=== PATIENT | female | born 1955 | race American Indian/Alaskan Native ===

== ENCOUNTER 2021-06-21 13:58 | Inpatient (IN) | payer BC, MEDICARE ==
--- NOTE | 2021-06-21 14:30 | Event Note ---
ED Screening Note Date of service: 06/21/21 Time: 14:29 ED Screening Note: Patient presents with complaints of shortness of breath x2 days History of diabetes and CHF Denies swelling Patient does admit to loss of taste and smell and chills She has received both her doses of the Covid vaccination, however she states she has been recently exposed to Covid at work Pulse ox noted to be 93% on room air while sitting and decreases to 87 to 88% with short ambulation and standing No swelling of the lower extremities noted on exam This initial assessment/diagnostic orders/clinical plan/treatment(s) is/are subject to change based on patients health status, clinical progression and re- assessment by fellow clinical providers in the ED. Further treatment and workup at subsequent clinical providers discretion. Patient/guardian urged not to elope from the ED as their condition may be serious if not clinically assessed and managed. Initial orders include: Labs Chest x-ray EKG Oxygen via nasal cannula
--- NOTE | 2021-06-21 15:11 | XRay Report ---
XR chest routine 2V INDICATION / CLINICAL INFORMATION: shortness of breath COMPARISON: None available. FINDINGS: SUPPORT DEVICES: None. HEART / MEDIASTINUM: No significant abnormality. LUNGS / PLEURA: Bibasilar peripheral opacities. Costophrenic sulci are sharp. No pneumothorax. ADDITIONAL FINDINGS: No significant additional findings. IMPRESSION: 1. Bilateral lower lung zone airspace disease concerning for pneumonia. Signer Name: Peyman Bhatia MD Signed: 06/21/2021 3:06 PM Workstation Name: [employer]
[2021-06-21 16:58] LABS: Basophils % (Auto) 0.3 % (0.0-1.8); Hematocrit 40.7 % (30.3-42.9); Hemoglobin 13.7 gm/dl (10.1-14.3); Lymphocytes # (Auto) 1.2 K/mm3 (1.2-5.4); Lymphocytes % (Auto) 25.4 % (13.4-35.0); Mean Corpuscular HGB Conc 34 % (30-34); Mean Corpuscular Volume 98 fl (79-97); Monocytes # (Auto) 0.4 K/mm3 (0.0-0.8); Monocytes % (Auto) 8.9 % (0.0-7.3); Platelet Count 264 K/mm3 (140-440); Red Blood Count 4.16 M/mm3 (3.65-5.03); Red Cell Distribution Width 13.2 % (13.2-15.2)
[2021-06-21 17:08] LABS: Alanine Aminotransferase 23 units/L (7-56); Albumin 3.8 g/dL (3.9-5); BUN/Creatinine Ratio 26; Blood Urea Nitrogen 23 mg/dL (7-17); Calcium 9.4 mg/dL (8.4-10.2); Hemolysis Index 4
[2021-06-21 17:10] LABS: C-Reactive Protein 6.2 mg/dL (0.00-1.30)
[2021-06-21] MEDS ORDERED: AZITHROMYCIN/NS 500 MG/250 ML 500 MG/250 ML BAG IV ONE (17:10)
[2021-06-21] MEDS ORDERED: cefTRIAXone/NS 2 GM/100 ML 2 GM/100 ML BAG IV ONE (17:10)
[2021-06-21] MEDS ORDERED: dexAMETHasone 4 MG/ML VIAL IV ONE (17:11)
--- NOTE | 2021-06-21 17:15 | Emergency Department Report ---
ED Shortness of Breath HPI - General Chief Complaint: Dyspnea/Respdistress Stated Complaint: SOB Time Seen by Provider: 06/21/21 14:27 Source: patient Mode of arrival: Wheelchair Limitations: No Limitations - History of Present Illness Initial Comments: 65-year female with a past medical history of noninsulin-dependent diabetes and hypertension presents to the hospital complaining of shortness of breath, cough, chills, and malaise x3 days. Patient reports a Covid exposure at work. Patient has been vaccinated with Phizer vaccine with last dose on 03/16/2021. Patient has been monitoring her O2 saturation at home and states intermittent as low as 86% while at rest and therefore she came to the hospital. She denies nausea, vomiting. No diarrhea reported. O2 sat 96% on 4 L NC in ed. -: Gradual, days(s) Consistency: intermittent Improves With: oxygen Worsens With: exertion Context: other (covid exposure) Associated Symptoms: cough - Related Data Allergies Allergy/AdvReac Type Severity Reaction Status Date / Time No Known Allergies Allergy Unverified 06/21/21 14:21 ED Review of Systems ROS: Stated complaint: SOB Other details as noted in HPI Comment: All other systems reviewed and negative ED Past Medical Hx - Past Medical History Previous Medical History?: Yes Hx Hypertension: Yes Hx Diabetes: Yes - Surgical History Past Surgical History?: Yes Hx Cholecystectomy: Yes Additional Surgical History: tonsil ED Physical Exam - General Limitations: No Limitations - Other Other exam information: General: No acute distress Head: Atraumatic Eyes: normal appearance ENT: Moist mucous membranes Neck: Normal appearance, no midline tenderness Chest: Clear to auscultation bilaterally, mild tachypnea, no accessory muscle use CV: Mild tachycardia regular rhythm Abdomen: Soft, normal bowel sounds, nontender, nondistended, no rebound or guarding Back: Normal inspection Extremity: Normal inspection, full range of motion, no calf tenderness or leg edema Neuro: Alert O x 3, no facial asymmetry, speech clear, no gross motor sensory deficit Psych: Appropriate behavior Skin: No rash ED Course Vital Signs 06/21/21 06/21/21 14:25 23:09 Temperature 98.7 F 99.1 F Pulse Rate 102 H 88 Respiratory 20 18 Rate Blood Pressure 131/73 Blood Pressure 132/87 [Right] O2 Sat by Pulse 96 92 Oximetry - Reevaluation(s) Reevaluation #1: 06/21/21 17:27 Patient remained saturation was 91% her ambulatory sat went down to 86%. Satting 98% on 3 L ED Medical Decision Making - Lab Data Result diagrams: 06/21/21 16:33 06/21/21 16:33 Lab Results 06/21/21 06/21/21 06/21/21 Range/Units 16:33 16:33 16:33 WBC 4.9 (4.5-11.0) K/mm3 RBC 4.16 (3.65-5.03) M/mm3 Hgb 13.7 (10.1-14.3) gm/dl Hct 40.7 (30.3-42.9) % MCV 98 H (79-97) fl MCH 33 H (28-32) pg MCHC 34 (30-34) % RDW 13.2 (13.2-15.2) % Plt Count 264 (140-440) K/mm3 Lymph % (Auto) 25.4 (13.4-35.0) % [place] % (Auto) 8.9 H (0.0-7.3) % Eos % (Auto) 0.0 (0.0-4.3) % Baso % (Auto) 0.3 (0.0-1.8) % Lymph # (Auto) 1.2 (1.2-5.4) K/mm3 [place] # (Auto) 0.4 (0.0-0.8) K/mm3 Eos # (Auto) 0.0 (0.0-0.4) K/mm3 Baso # (Auto) 0.0 (0.0-0.1) K/mm3 Seg Neutrophils % 65.4 (40.0-70.0) % Seg Neutrophils # 3.2 (1.8-7.7) K/mm3 D-Dimer 421.41 H (0-234) ng/mlDDU Sodium 138 (137-145) mmol/L Potassium 4.6 (3.6-5.0) mmol/L Chloride 100.6 (98-107) mmol/L Carbon Dioxide 25 (22-30) mmol/L Anion Gap 17 mmol/L BUN 23 H (7-17) mg/dL Creatinine 0.9 (0.6-1.2) mg/dL Estimated GFR > 60 ml/min BUN/Creatinine Ratio 26 % Glucose 107 H (65-100) mg/dL Calcium 9.4 (8.4-10.2) mg/dL Ferritin (10.0-200.0) ng/mL Total Bilirubin 0.30 (0.1-1.2) mg/dL AST 50 H (5-40) units/L ALT 23 (7-56) units/L Alkaline Phosphatase 111 (35-129) units/L Lactate Dehydrogenase (91-180) units/L Troponin T < 0.010 (0.00-0.029) ng/mL C-Reactive Protein (0.00-1.30) mg/dL NT-Pro-B Natriuret Pep 193.1 (0-900) pg/mL Total Protein 6.9 (6.3-8.2) g/dL Albumin 3.8 L (3.9-5) g/dL Albumin/Globulin Ratio 1.2 % 06/21/21 06/21/21 Range/Units 16:33 16:33 WBC (4.5-11.0) K/mm3 RBC (3.65-5.03) M/mm3 Hgb (10.1-14.3) gm/dl Hct (30.3-42.9) % MCV (79-97) fl MCH (28-32) pg MCHC (30-34) % RDW (13.2-15.2) % Plt Count (140-440) K/mm3 Lymph % (Auto) (13.4-35.0) % [place] % (Auto) (0.0-7.3) % Eos % (Auto) (0.0-4.3) % Baso % (Auto) (0.0-1.8) % Lymph # (Auto) (1.2-5.4) K/mm3 [place] # (Auto) (0.0-0.8) K/mm3 Eos # (Auto) (0.0-0.4) K/mm3 Baso # (Auto) (0.0-0.1) K/mm3 Seg Neutrophils % (40.0-70.0) % Seg Neutrophils # (1.8-7.7) K/mm3 D-Dimer (0-234) ng/mlDDU Sodium (137-145) mmol/L Potassium (3.6-5.0) mmol/L Chloride (98-107) mmol/L Carbon Dioxide (22-30) mmol/L Anion Gap mmol/L BUN (7-17) mg/dL Creatinine (0.6-1.2) mg/dL Estimated GFR ml/min BUN/Creatinine Ratio % Glucose 108 H (65-100) mg/dL Calcium (8.4-10.2) mg/dL Ferritin 243.8 H (10.0-200.0) ng/mL Total Bilirubin (0.1-1.2) mg/dL AST (5-40) units/L ALT (7-56) units/L Alkaline Phosphatase (35-129) units/L Lactate Dehydrogenase 347 H (91-180) units/L Troponin T (0.00-0.029) ng/mL C-Reactive Protein 6.20 H (0.00-1.30) mg/dL NT-Pro-B Natriuret Pep (0-900) pg/mL Total Protein (6.3-8.2) g/dL Albumin (3.9-5) g/dL Albumin/Globulin Ratio % - Radiology Data Radiology results: report reviewed XR chest routine 2V INDICATION / CLINICAL INFORMATION: shortness of breath COMPARISON: None available. FINDINGS: SUPPORT DEVICES: None. HEART / MEDIASTINUM: No significant abnormality. LUNGS / PLEURA: Bibasilar peripheral opacities. Costophrenic sulci are sharp. No pneumothorax. ADDITIONAL FINDINGS: No significant additional findings. IMPRESSION: 1. Bilateral lower lung zone airspace disease concerning for pneumonia. - Medical Decision Making 65-year-old female with likely Covid pneumonia (despite receiving vaccine) with bilateral infiltrates, hypoxia, dyspnea exertion, and chills requiring admission for treatment. Patient treated with antibiotics for community-acquired pneumonia as well as steroids. PCR Covid ordered. Hospitalist to admit. Supplemental oxygenation provided Critical Care Time: No Critical care attestation.: If time is entered above; I have spent that time in minutes in the direct care of this critically ill patient, excluding procedure time. ED Disposition Clinical Impression: Suspected COVID-19 virus infection, Bilateral pneumonia, Hypoxia, Diabetes HTN (hypertension) Qualifiers: Hypertension type: primary hypertension Qualified Code(s): I10 - Essential (p rimary) hypertension Disposition: ADMITTED INPATIENT Is pt being admited?: Yes Condition: Stable Time of Disposition: :17 (Dr Campbell/hosp)
[2021-06-21] MEDS ORDERED: oxyCODONE /ACETAMINOPHEN 5-325MG TAB PO PRN (17:18)
[2021-06-21] MEDS ORDERED: ALBUTEROL 2.5 MG/3 ML NEBU IH PRN (17:18)
[2021-06-21] MEDS ORDERED: ALPRAZolam 0.25 MG TAB PO PRN (17:18)
[2021-06-21] MEDS ORDERED: ACETAMINOPHEN 325 MG TAB PO PRN (17:18)
[2021-06-21] MEDS ORDERED: ONDANSETRON 4 MG/2 ML INJ IV PRN (17:18)
[2021-06-21] MEDS ORDERED: HYDROmorphone 1 MG/1 ML INJ IV PRN (17:18)
--- NOTE | 2021-06-21 17:25 | History and Physical Report ---
History of Present Illness Chief complaint: I feel sick History of present illness: 65 YO Female with HTN, DM presents to ED for evaluation. Patient reports "I feel sick". Patient states that she has experienced shortness of breath of breath, subjective fever, chills, malaise, loss of sense of smell, loss of sense of taste, body aches over the past 3 days with persistent and worsening symptoms over the same timeframe. Patient knowledges known exposure to coronavirus while at work. Patient transported to [facility] for further care and evaluation of the aforementioned symptoms. The patient was seen and evaluated in the emergency department. All lab and imaging studies reviewed. The patient was found to have a pulse oximetry of 86% with exertion with history is consistent with acute hypoxemic respiratory failure. Chest x-ray revealed bilateral pneumonia. Patient admitted to medical floor and initiated on pneumonia protocol as well as coronavirus protocol. Patient knowledges fever but denies chills, chest pain, palpitation, skin rash, recent ill contacts. Patient states that she is fully vaccinated with the Pfizer vaccine. No prior admission for review. No medication listed at time of admission for reconciliation. Advanced care planning conducted in ED. Past History Past Medical History: diabetes, hypertension, other (See HPI) Past Surgical History: cholecystectomy, tonsillectomy Social history: single. denies: smoking, alcohol abuse Family history: diabetes, hypertension Medications and Allergies Allergies Allergy/AdvReac Type Severity Reaction Status Date / Time No Known Allergies Allergy Unverified 06/21/21 14:21 Active Meds: Active Medications Acetaminophen (Acetaminophen 325 Mg Tab) 650 mg PO Q4H PRN PRN Reason: Pain MILD(1-3)/Fever >100.5/MARIE Albuterol (Albuterol 2.5 Mg/3 Ml Nebu) 2.5 mg IH Q4HRT PRN PRN Reason: Shortness Of Breath Alprazolam (Alprazolam 0.25 Mg Tab) 0.125 mg PO Q8H PRN PRN Reason: Anxiety Ascorbic Acid (Ascorbic Acid 500 Mg Tab) 500 mg PO BID [facility] Cholecalciferol (Cholecalciferol (Vit D3) 1000 Unit (25 Mcg) Tab) 1,000 unit PO QDAY [facility] Heparin Sodium (Porcine) (Heparin 5,000 Unit/1 Ml Vial) 5,000 unit SUB-Q Q12HR [facility] Hydromorphone HCl (Hydromorphone 1 Mg/1 Ml Inj) 0.5 mg IV Q12H PRN PRN Reason: Pain , Severe (7-10) Ceftriaxone Sodium (Rocephin/Ns 2 Gm/100 Ml) 2 gm in 100 mls @ 200 mls/hr IV ONCE ONE; Protocol Stop: 06/21/21 17:39 Azithromycin (Zithromax/Ns) 500 mg in 250 mls @ 250 mls/hr IV ONCE ONE; Protocol Stop: 06/21/21 18:09 Ceftriaxone Sodium (Rocephin/Ns 2 Gm/100 Ml) 2 gm in 100 mls @ 200 mls/hr IV Q24H [facility]; Protocol Azithromycin (Zithromax/Ns) 500 mg in 250 mls @ 250 mls/hr IV Q24H [facility]; Protocol Methylprednisolone Sodium Succinate (Methylprednisolone Sod Succinate 40 Mg/1 Ml Inj) 40 mg IV Q8HR [facility] Ondansetron HCl (Ondansetron 4 Mg/2 Ml Inj) 4 mg IV Q8H PRN PRN Reason: Nausea And Vomiting Oxycodone/Acetaminophen (Oxycodone /Acetaminophen 5-325mg Tab) 1 tab PO Q12H PRN PRN Reason: Pain, Moderate (4-6) Sodium Chloride (Sodium Chloride 0.9% 10 Ml Flush Syringe) 10 ml IV BID [facility]EUS Sodium Chloride (Sodium Chloride 0.9% 10 Ml Flush Syringe) 10 ml IV PRN PRN PRN Reason: LINE FLUSH Review of Systems Constitutional: fever, fatigue, weakness, malaise, lethargy Ears, nose, mouth and throat: other (Loss of sense of smell, loss of sense of taste), no deferred, no ear pain, no ear discharge, no tinnitis, no decreased hearing Breasts: no change in shape Cardiovascular: shortness of breath, no chest pain, no orthopnea, no rapid/irregular heart beat Respiratory: cough, shortness of breath, no excessive sputum, no hemoptysis, no dyspnea on exertion Gastrointestinal: no abdominal pain, no vomiting, no diarrhea Genitourinary Female: no pelvic pain, no flank pain, no dysuria, no urinary frequency, no urgency Rectal: no pain, no incontinence, no bleeding Musculoskeletal: no neck stiffness, no neck pain, no shooting arm pain Integumentary: no rash, no pruritis, no redness, no sores, no wounds Neurological: no head injury, no transient paralysis, no paralysis, no weakness, no parathesias, no numbness Psychiatric: no change in sleep habits, no sleep disturbances, no insomnia, no hypersomnia, no change in libido Endocrine: no cold intolerance, no heat intolerance, no excessive thirst, no polyuria, no flushing Hematologic/Lymphatic: no easy bruising, no easy bleeding, no lymphedema Allergic/Immunologic: no urticaria, no allergic rhinitis, no persistent infections, no angioedema Exam - Constitutional Vitals: Temp Pulse Resp BP Pulse Ox 98.7 F 102 H 20 131/73 96 06/21/21 14:25 06/21/21 14:25 06/21/21 14:25 06/21/21 14:25 06/21/21 14:25 General appearance: Present: mild distress - EENT Eyes: Present: PERRL ENT: hearing intact, clear oral mucosa - Neck Neck: Present: supple, normal ROM - Respiratory Respiratory effort: labored, accessory muscle use Respiratory: bilateral: diminished, rhonchi - Cardiovascular Heart Sounds: Present: S1 & S2. Absent: rub, click - Extremities Extremities: pulses symmetrical, No edema Peripheral Pulses: within normal limits - Abdominal General gastrointestinal: Present: soft, non-tender, non-distended, normal bowel sounds Female genitourinary: Present: normal - Integumentary Integumentary: Present: clear, warm, dry - Musculoskeletal Musculoskeletal: generalized weakness - Psychiatric Psychiatric: appropriate mood/affect, intact judgment & insight - Neurologic Neurologic: CNII-XII intact, moves all extremities HEART Score - HEART Score Troponin: Troponin T < 0.010 ng/mL (0.00-0.029) 06/21/21 16:33 Results - Labs CBC & Chem 7: 06/21/21 16:33 06/21/21 16:33 Labs: Abnormal lab results 06/21/21 06/21/21 06/21/21 Range/Units 16:33 16:33 16:33 MCV 98 H (79-97) fl MCH 33 H (28-32) pg [place] % (Auto) 8.9 H (0.0-7.3) % D-Dimer 421.41 H (0-234) ng/mlDDU BUN 23 H (7-17) mg/dL Glucose 107 H (65-100) mg/dL AST 50 H (5-40) units/L Lactate Dehydrogenase (91-180) units/L C-Reactive Protein (0.00-1.30) mg/dL Albumin 3.8 L (3.9-5) g/dL 06/21/21 Range/Units 16:33 MCV (79-97) fl MCH (28-32) pg [place] % (Auto) (0.0-7.3) % D-Dimer (0-234) ng/mlDDU BUN (7-17) mg/dL Glucose 108 H (65-100) mg/dL AST (5-40) units/L Lactate Dehydrogenase 347 H (91-180) units/L C-Reactive Protein 6.20 H (0.00-1.30) mg/dL Albumin (3.9-5) g/dL Assessment and Plan - Patient Problems (1) Acute hypoxemic respiratory failure Current Visit: Yes Status: Acute Plan to address problem: Supplemental oxygen, pulse oximetry, chest x-ray, nebulizer therapy, prone positioning while in bed, will consider high flow supplemental oxygen if patient is unable to maintain pulse oximetry on supplemental oxygen via nasal cannula. (2) Bilateral pneumonia Current Visit: Yes Status: Acute Plan to address problem: Pneumonia protocol: Chest x-ray, CBC, CMP, supplemental oxygen, pulse oximetry, nebulizer therapy, IV antibiotic therapy, blood culture. (3) Diabetes Current Visit: Yes Status: Acute Plan to address problem: Consistent carbohydrate diet, Accu-Chek, insulin protocol, hypoglycemia protocol. (4) HTN (hypertension) Current Visit: Yes Status: Acute Qualifiers: Hypertension type: primary hypertension Qualified Code(s): I10 - Essential (primary) hypertension Plan to address problem: Monitor blood pressure every shift, continue medical management (5) Suspected COVID-19 virus infection Current Visit: Yes Status: Acute Plan to address problem: Coronavirus protocol: IV antibiotic therapy, IV steroid therapy, supplemental oxygen, pulse oximetry, nebulizer therapy, prone positioning while in bed, vitamin C therapy, vitamin D therapy, zinc therapy, prophylactic anticoagulation. (6) DVT prophylaxis Current Visit: Yes Status: Acute Plan to address problem: SCD to bilateral lower extremities while in bed, prophylactic anticoagulation (7) Advance care planning Current Visit: Yes Status: Acute Plan to address problem: Disease education conducted, care plan discussed, diagnosis discussed, prognosis discussed, patient is full code, patient knowledges understanding and agreement with care plan, +30 minutes.
[2021-06-21] MEDS: methylPREDNISolone Sod Succinate 40 MG/1 ML INJ IV SCH (18:52)
[2021-06-22] MEDS: ASCORBIC ACID 500 MG TAB PO SCH ×3 (00:41→22:44)
[2021-06-22] MEDS: HEPARIN 5,000 UNIT/1 ML VIAL SUB-Q SCH ×3 (00:42→22:44)
[2021-06-22] MEDS: methylPREDNISolone Sod Succinate 40 MG/1 ML INJ IV SCH ×2 (02:06→11:18)
[2021-06-22 09:38] LABS: Alanine Aminotransferase 26 units/L (7-56); Albumin 3.7 g/dL (3.9-5); BUN/Creatinine Ratio 31; Blood Urea Nitrogen 28 mg/dL (7-17); Calcium 8.5 mg/dL (8.4-10.2); Hemolysis Index 0
[2021-06-22] MEDS: CHOLECALCIFEROL (VIT D3) 1000 UNIT (25 mcg) TAB PO SCH (11:10)
--- NOTE | 2021-06-22 13:25 | Electrocardiograph Report ---
[facility] Test Date: 2021-06-22 Test Time: 08:19:21 Pat Name: SUDEEP GONSALVES Department: Room: A379 1 Gender: F Manager [employer]: HIGINIO : 1955 Requested By: NUZHAT ROMO Order Number: [id number] Reading MD: Carlito Espinoza Measurements Intervals [place] Rate: 74 P: 61 [place]: 150 QRS: 3 QRSD: 96 T: 30 QT: 410 QTc: 456 Interpretive Statements Sinus rhythm Multiple ventricular premature complexes Probable left atrial enlargement No previous ECG available for comparison Electronically Signed On 06-22-2021 13:24:55 EDT by Carlito Espinoza
--- NOTE | 2021-06-22 14:21 | Consultation ---
History of Present Illness - Reason for Consult Consult date: 06/22/21 COVID Requesting physician: JAME LEARY - History of Present Illness The patient is a 65-year-old female with hypertension, diabetes was admitted to the hospital with worsening shortness of breath, subjective fever, chills and malaise. She was also having body aches over the last 3 days. Upon evaluation in the ER, noted to be hypoxic. Patient is fully vaccinated against COVID-19. No fever. Currently on 3 L oxygen by nasal cannula. Labs revealed WBC of 2.3 today, D-dimer 421, ferritin 243, LDH 347, CRP 6.2. Creatinine 0.9. Review of Systems: reviewed in the chart, unable to obtain, minimize risk of transmission Past History Past Medical History: diabetes, hypertension, other (See HPI) Past Surgical History: cholecystectomy, tonsillectomy Social history: single. denies: smoking, alcohol abuse Family history: diabetes, hypertension Medications and Allergies Allergies Allergy/AdvReac Type Severity Reaction Status Date / Time No Known Allergies Allergy Verified 06/22/21 05:42 Home Medications Medication Instructions Recorded Confirmed Last Taken Type AtorvaSTATin [Lipitor] 20 mg PO QDAY 06/22/21 06/22/21 06/20/[address] [Voltaren Dr] 75 mg PO TID 06/22/21 06/22/21 06/21/21 08:00 History Furosemide [Lasix] 20 mg PO QDAY 06/22/21 06/22/21 06/21/21 08:00 History Losartan [Cozaar] 25 mg PO QDAY 06/22/21 06/22/21 06/21/21 08:00 History Metoprolol Xl [Metoprolol 50 mg PO QDAY 06/22/21 06/22/21 06/21/21 08:00 History SUCCINATE ER TAB] metFORMIN 500 mg PO BID 06/22/21 06/22/21 06/21/21 08:00 History Active Meds: Active Medications Acetaminophen (Acetaminophen 325 Mg Tab) 650 mg PO Q4H PRN PRN Reason: Pain MILD(1-3)/Fever >100.5/MARIE Albuterol (Albuterol 2.5 Mg/3 Ml Nebu) 2.5 mg IH Q4HRT PRN PRN Reason: Shortness Of Breath Alprazolam (Alprazolam 0.25 Mg Tab) 0.125 mg PO Q8H PRN PRN Reason: Anxiety Ascorbic Acid (Ascorbic Acid 500 Mg Tab) 500 mg PO BID [facility] Last Admin: 06/22/21 11:10 Dose: 500 mg Documented by: Cholecalciferol (Cholecalciferol (Vit D3) 1000 Unit (25 Mcg) Tab) 1,000 unit PO QDAY [facility] Last Admin: 06/22/21 11:10 Dose: 1,000 unit Documented by: Heparin Sodium (Porcine) (Heparin 5,000 Unit/1 Ml Vial) 5,000 unit SUB-Q Q12HR [facility] Last Admin: 06/22/21 11:10 Dose: 5,000 unit Documented by: Hydromorphone HCl (Hydromorphone 1 Mg/1 Ml Inj) 0.5 mg IV Q12H PRN PRN Reason: Pain , Severe (7-10) Ceftriaxone Sodium (Rocephin/Ns 2 Gm/100 Ml) 2 gm in 100 mls @ 200 mls/hr IV Q24H [facility]; Protocol Stop: 06/25/21 16:29 Azithromycin (Zithromax/Ns) 500 mg in 250 mls @ 250 mls/hr IV Q24H [facility]; Protocol Stop: 06/25/21 18:59 Methylprednisolone Sodium Succinate (Methylprednisolone Sod Succinate 40 Mg/1 Ml Inj) 40 mg IV Q8H [facility] Last Admin: 06/22/21 11:18 Dose: 40 mg Documented by: Ondansetron HCl (Ondansetron 4 Mg/2 Ml Inj) 4 mg IV Q8H PRN PRN Reason: Nausea And Vomiting Oxycodone/Acetaminophen (Oxycodone /Acetaminophen 5-325mg Tab) 1 tab PO Q12H PRN PRN Reason: Pain, Moderate (4-6) Sodium Chloride (Sodium Chloride 0.9% 10 Ml Flush Syringe) 10 ml IV BID [facility] Last Admin: 06/22/21 11:11 Dose: 10 ml Documented by: Sodium Chloride (Sodium Chloride 0.9% 10 Ml Flush Syringe) 10 ml IV PRN PRN PRN Reason: LINE FLUSH Physical Examination - Physical Exam Narrative exam: Physical Exam (reviewed in chart to minimize risk of transmission) Constitutional: deferred Head, Ears, Nose: deferred Eyes: deferred Neck: deferred Oral: deferred Cardiovascular: deferred Respiratory: deferred GI: deferred Musculoskeletal: deferred Skin: deferred Hem/Lymphatic: deferred Psych: deferred Neurological: deferred - Constitutional Vitals: Vital Signs Temp Pulse Resp BP Pulse Ox 98.5 F 69 20 106/49 94 06/22/21 04:12 06/22/21 04:12 06/22/21 04:12 06/22/21 04:12 06/22/21 10:00 Temperature -Last 24 Hours Temperature 98.5 F Temperature 99.0 F Temperature 99.6 F Temperature 99.1 F Temperature 98.7 F Results - Labs CBC & Chem 7: 06/22/21 07:52 06/22/21 07:52 Labs: Abnormal lab results 06/21/21 06/21/21 06/21/21 Range/Units 16:33 16:33 16:33 WBC (4.5-11.0) K/mm3 MCV 98 H (79-97) fl MCH 33 H (28-32) pg RDW (13.2-15.2) % [place] % (Auto) 8.9 H (0.0-7.3) % D-Dimer 421.41 H (0-234) ng/mlDDU Potassium (3.6-5.0) mmol/L Carbon Dioxide (22-30) mmol/L BUN 23 H (7-17) mg/dL Glucose 107 H (65-100) mg/dL POC Glucose (70-105) mg/dL Ferritin (10.0-200.0) ng/mL AST 50 H (5-40) units/L Lactate Dehydrogenase (91-180) units/L C-Reactive Protein (0.00-1.30) mg/dL Albumin 3.8 L (3.9-5) g/dL 06/21/21 06/21/21 06/22/21 Range/Units 16:33 16:33 07:42 WBC (4.5-11.0) K/mm3 MCV (79-97) fl MCH (28-32) pg RDW (13.2-15.2) % [place] % (Auto) (0.0-7.3) % D-Dimer (0-234) ng/mlDDU Potassium (3.6-5.0) mmol/L Carbon Dioxide (22-30) mmol/L BUN (7-17) mg/dL Glucose 108 H (65-100) mg/dL POC Glucose 217 H (70-105) mg/dL Ferritin 243.8 H (10.0-200.0) ng/mL AST (5-40) units/L Lactate Dehydrogenase 347 H (91-180) units/L C-Reactive Protein 6.20 H (0.00-1.30) mg/dL Albumin (3.9-5) g/dL 06/22/21 06/22/21 06/22/21 Range/Units 07:52 07:52 11:46 WBC 2.3 L (4.5-11.0) K/mm3 MCV 98 H (79-97) fl MCH 33 H (28-32) pg RDW 13.0 L (13.2-15.2) % [place] % (Auto) (0.0-7.3) % D-Dimer (0-234) ng/mlDDU Potassium 5.2 H (3.6-5.0) mmol/L Carbon Dioxide 20 L (22-30) mmol/L BUN 28 H (7-17) mg/dL Glucose 224 H (65-100) mg/dL POC Glucose 293 H (70-105) mg/dL Ferritin (10.0-200.0) ng/mL AST 43 H (5-40) units/L Lactate Dehydrogenase (91-180) units/L C-Reactive Protein (0.00-1.30) mg/dL Albumin 3.7 L (3.9-5) g/dL - Imaging and Cardiology Chest x-ray: report reviewed, image reviewed (b/l pna) Assessment and Plan Cultures: SARS CoV2 PCR: Positive as outpatient 06/21/2021 blood culture: In process A/P: 65-year-old female with hypertension, diabetes with: #Bilateral pneumonia: Secondary to COVID-19. Bilateral pneumonia on chest x-ra y. Patient is fully vaccinated. Breakthrough infection. Markers not very elevated. #Acute hypoxic respiratory failure: Secondary to above. On nasal cannula. #Diabetes, hypertension: Comorbidities associated with worse Covid outcomes. #Leukopenia: Likely secondary to COVID-19 Recs: -Already on Solu-Medrol -Follow-up procalcitonin, if low, antibiotics can be discontinued -IV remdesivir ordered -Follow-up COVID-19 PCR here -prophylactic anticoagulation based on d-dimer per hospital protocol -trend ferritin, LDH, d-dimer, CRP every 2-3 days for risk stratification and to assess disease progression Angela Newell MD, FACP [facility] O: [phone] F: [phone]
[2021-06-22 15:45] LABS: Basophils % (Auto) 0.3 % (0.0-1.8); Hematocrit 39.9 % (30.3-42.9); Hemoglobin 13.4 gm/dl (10.1-14.3); Lymphocytes # (Auto) 0.6 K/mm3 (1.2-5.4); Mean Corpuscular HGB Conc 34 % (30-34); Mean Corpuscular Volume 99 fl (79-97); Monocytes # (Auto) 0.1 K/mm3 (0.0-0.8); Monocytes % (Auto) 5.9 % (0.0-7.3); Platelet Count 275 K/mm3 (140-440); Red Blood Count 4.05 M/mm3 (3.65-5.03); Red Cell Distribution Width 13.2 % (13.2-15.2)
[2021-06-22] MEDS ORDERED: REMDESIVIR 200 MG in SODIUM CHLORIDE 0.9% 250ML 250 ML IV ONE (17:00)
[2021-06-22 17:24] LABS: Giant Platelets Rare; RBC Morphology Normal; Total Cells Counted 100
[2021-06-22] MEDS: SODIUM CHLORIDE 0.9% 50 ML IVPB IV SCH (17:27)
[2021-06-22] MEDS: cefTRIAXone/NS 2 GM/100 ML 2 GM/100 ML BAG IV SCH (17:27)
[2021-06-22] MEDS: AZITHROMYCIN/NS 500 MG/250 ML 500 MG/250 ML BAG IV SCH (17:34)
--- NOTE | 2021-06-22 21:18 | Progress Note ---
Assessment and Plan - Patient Problems (1) Acute hypoxemic respiratory failure Current Visit: Yes Status: Acute Plan to address problem: Supplemental oxygen, pulse oximetry, chest x-ray, nebulizer therapy, prone positioning while in bed, will consider high flow supplemental oxygen if patient is unable to maintain pulse oximetry on supplemental oxygen via nasal cannula. (2) Bilateral pneumonia Current Visit: Yes Status: Acute Plan to address problem: Pneumonia protocol: Chest x-ray, CBC, CMP, supplemental oxygen, pulse oximetry, nebulizer therapy, IV antibiotic therapy, blood culture. (3) Diabetes Current Visit: Yes Status: Acute Plan to address problem: Consistent carbohydrate diet, Accu-Chek, insulin protocol, hypoglycemia protocol. (4) HTN (hypertension) Current Visit: Yes Status: Acute Qualifiers: Hypertension type: primary hypertension Qualified Code(s): I10 - Essential (primary) hypertension Plan to address problem: Monitor blood pressure every shift, continue medical management (5) Suspected COVID-19 virus infection Current Visit: Yes Status: Acute Plan to address problem: Coronavirus protocol: IV antibiotic therapy, IV steroid therapy, supplemental oxygen, pulse oximetry, nebulizer therapy, prone positioning while in bed, vitamin C therapy, vitamin D therapy, zinc therapy, prophylactic anticoagulation. (6) DVT prophylaxis Current Visit: Yes Status: Acute Plan to address problem: SCD to bilateral lower extremities while in bed, prophylactic anticoagulation (7) Advance care planning Current Visit: Yes Status: Acute Plan to address problem: Disease education conducted, care plan discussed, diagnosis discussed, prognosis discussed, patient is full code, patient knowledges understanding and agreement with care plan, +30 minutes. History Interval history: 65 YO Female HD #2 with acute hypoxemic respiratory failure, bilateral pneumonia, hypertension, diabetes, coronavirus infection. No reported nursing events. Patient states that her breathing is better today. Patient denies pain. Hospitalist Physical - Constitutional Vitals: Temp Pulse Resp BP Pulse Ox 98.1 F 69 18 119/54 96 06/22/21 11:44 06/22/21 11:45 06/22/21 11:44 06/22/21 11:44 06/22/21 11:45 General appearance: Present: mild distress, obese - EENT Eyes: Present: PERRL ENT: hearing intact - Neck Neck: Present: supple - Respiratory Respiratory effort: labored Respiratory: bilateral: diminished - Cardiovascular Rhythm: regular Heart Sounds: Present: S1 & S2 - Extremities Extremities: no ischemia Peripheral Pulses: within normal limits - Abdominal General gastrointestinal: soft, non-tender, non-distended - Integumentary Integumentary: Present: clear, dry - Psychiatric Psychiatric: cooperative - Neurologic Neurologic: CNII-XII intact HEART Score - HEART Score Troponin: Troponin T < 0.010 ng/mL (0.00-0.029) 06/21/21 16:33 Results - Labs CBC & Chem 7: 06/22/21 07:52 06/22/21 07:52 Labs: Laboratory Last Values WBC 2.3 K/mm3 (4.5-11.0) L 06/22/21 07:52 RBC 4.05 M/mm3 (3.65-5.03) 06/22/21 07:52 Hgb 13.4 gm/dl (10.1-14.3) 06/22/21 07:52 Hct 39.9 % (30.3-42.9) 06/22/21 07:52 MCV 99 fl (79-97) H 06/22/21 07:52 MCH 33 pg (28-32) H 06/22/21 07:52 MCHC 34 % (30-34) 06/22/21 07:52 RDW 13.2 % (13.2-15.2) 06/22/21 07:52 Plt Count 275 K/mm3 (140-440) 06/22/21 07:52 Lymph % (Auto) 27.0 % (13.4-35.0) 06/22/21 07:52 [place] % (Auto) 5.9 % (0.0-7.3) 06/22/21 07:52 Eos % (Auto) 0.0 % (0.0-4.3) 06/22/21 07:52 Baso % (Auto) 0.3 % (0.0-1.8) 06/22/21 07:52 Lymph # (Auto) 0.6 K/mm3 (1.2-5.4) L 06/22/21 07:52 [place] # (Auto) 0.1 K/mm3 (0.0-0.8) 06/22/21 07:52 Eos # (Auto) 0.0 K/mm3 (0.0-0.4) 06/22/21 07:52 Baso # (Auto) 0.0 K/mm3 (0.0-0.1) 06/22/21 07:52 Add Manual Diff Complete 06/22/21 07:52 Total Counted 100 06/22/21 07:52 Seg Neutrophils % 66.8 % (40.0-70.0) 06/22/21 07:52 Seg Neuts % (Manual) 62.0 % (40.0-70.0) 06/22/21 07:52 Lymphocytes % (Manual) 31.0 % (13.4-35.0) 06/22/21 07:52 Monocytes % (Manual) 6.0 % (0.0-7.3) 06/22/21 07:52 Eosinophils % (Manual) 1.0 % (0.0-4.3) 06/22/21 07:52 Nucleated RBC % Not Reportable 06/22/21 07:52 Seg Neutrophils # 1.5 K/mm3 (1.8-7.7) L 06/22/21 07:52 Seg Neutrophils # Man 1.4 K/mm3 (1.8-7.7) L 06/22/21 07:52 Band Neutrophils # 0.0 K/mm3 06/22/21 07:52 Lymphocytes # (Manual) 0.7 K/mm3 (1.2-5.4) L 06/22/21 07:52 Abs React Lymphs (Man) 0.0 K/mm3 06/22/21 07:52 Monocytes # (Manual) 0.1 K/mm3 (0.0-0.8) 06/22/21 07:52 Eosinophils # (Manual) 0.0 K/mm3 (0.0-0.4) 06/22/21 07:52 Basophils # (Manual) 0.0 K/mm3 (0.0-0.1) 06/22/21 07:52 Metamyelocytes # 0.0 K/mm3 06/22/21 07:52 Myelocytes # 0.0 K/mm3 06/22/21 07:52 Promyelocytes # 0.0 K/mm3 06/22/21 07:52 Blast Cells # 0.0 K/mm3 06/22/21 07:52 WBC Morphology Not Reportable 06/22/21 07:52 Hypersegmented Neuts Not Reportable 06/22/21 07:52 Hyposegmented Neuts Not Reportable 06/22/21 07:52 Hypogranular Neuts Not Reportable 06/22/21 07:52 Smudge Cells Not Reportable 06/22/21 07:52 Toxic Granulation Not Reportable 06/22/21 07:52 Toxic Vacuolation Not Reportable 06/22/21 07:52 Dohle Bodies Not Reportable 06/22/21 07:52 Pelger-Huet Anomaly Not Reportable 06/22/21 07:52 Robert Rods Not Reportable 06/22/21 07:52 Platelet Estimate Not Reportable 06/22/21 07:52 Clumped Platelets Not Reportable 06/22/21 07:52 Plt Clumps, EDTA Not Reportable 06/22/21 07:52 Large Platelets Not Reportable 06/22/21 07:52 Giant Platelets Rare 06/22/21 07:52 Platelet Satelliting Not Reportable 06/22/21 07:52 Plt Morphology Comment Not Reportable 06/22/21 07:52 RBC Morphology Normal 06/22/21 07:52 Dimorphic RBCs Not Reportable 06/22/21 07:52 Polychromasia Not Reportable 06/22/21 07:52 Hypochromasia Not Reportable 06/22/21 07:52 Poikilocytosis Not Reportable 06/22/21 07:52 Anisocytosis Not Reportable 06/22/21 07:52 Microcytosis Not Reportable 06/22/21 07:52 Macrocytosis Not Reportable 06/22/21 07:52 Spherocytes Not Reportable 06/22/21 07:52 Pappenheimer Bodies Not Reportable 06/22/21 07:52 Sickle Cells Not Reportable 06/22/21 07:52 Target Cells Not Reportable 06/22/21 07:52 Tear Drop Cells Not Reportable 06/22/21 07:52 Ovalocytes Not Reportable 06/22/21 07:52 Helmet Cells Not Reportable 06/22/21 07:52 [place] Bodies Not Reportable 06/22/21 07:52 [place] Rings Not Reportable 06/22/21 07:52 [place] Cells Not Reportable 06/22/21 07:52 Bite Cells Not Reportable 06/22/21 07:52 Crenated Cell Not Reportable 06/22/21 07:52 Elliptocytes Not Reportable 06/22/21 07:52 Acanthocytes (Spur) Not Reportable 06/22/21 07:52 Rouleaux Not Reportable 06/22/21 07:52 Hemoglobin C Crystals Not Reportable 06/22/21 07:52 Schistocytes Not Reportable 06/22/21 07:52 Malaria parasites Not Reportable 06/22/21 07:52 [place] Bodies Not Reportable 06/22/21 07:52 Hem Pathologist Commnt No 06/22/21 07:52 D-Dimer 421.41 ng/mlDDU (0-234) H 06/21/21 16:33 Sodium 138 mmol/L (137-145) 06/22/21 07:52 Potassium 5.2 mmol/L (3.6-5.0) H 06/22/21 07:52 Chloride 102.5 mmol/L (98-107) 06/22/21 07:52 Carbon Dioxide 20 mmol/L (22-30) L 06/22/21 07:52 Anion Gap 21 mmol/L 06/22/21 07:52 BUN 28 mg/dL (7-17) H 06/22/21 07:52 Creatinine 0.9 mg/dL (0.6-1.2) 06/22/21 07:52 Estimated GFR > 60 ml/min 06/22/21 07:52 BUN/Creatinine Ratio 31 % 06/22/21 07:52 Glucose 224 mg/dL (65-100) H 06/22/21 07:52 POC Glucose 340 mg/dL (70-105) H 06/22/21 16:41 Calcium 8.5 mg/dL (8.4-10.2) 06/22/21 07:52 Ferritin 243.8 ng/mL (10.0-200.0) H 06/21/21 16:33 Total Bilirubin 0.30 mg/dL (0.1-1.2) 06/22/21 07:52 AST 43 units/L (5-40) H 06/22/21 07:52 ALT 26 units/L (7-56) 06/22/21 07:52 Alkaline Phosphatase 115 units/L (35-129) 06/22/21 07:52 Lactate Dehydrogenase 347 units/L (91-180) H 06/21/21 16:33 Troponin T < 0.010 ng/mL (0.00-0.029) 06/21/21 16:33 C-Reactive Protein 6.20 mg/dL (0.00-1.30) H 06/21/21 16:33 NT-Pro-B Natriuret Pep 193.1 pg/mL (0-900) 06/21/21 16:33 Total Protein 6.3 g/dL (6.3-8.2) 06/22/21 07:52 Albumin 3.7 g/dL (3.9-5) L 06/22/21 07:52 Albumin/Globulin Ratio 1.4 % 06/22/21 07:52 Coronavirus (PCR) Positive (Negative) A 06/22/21 Unknown Microbiology: Microbiology 06/21/21 17:27 Peripheral/Venous Blood Culture - Preliminary Culture in Progress 06/21/21 17:27 Peripheral/Venous Blood Culture - Preliminary Culture in Progress Active Medications - Current Medications Current Medications: Generic Name Dose Route Start Last Admin Trade Name Freq PRN Reason Stop Dose Admin Acetaminophen 650 mg 06/21/21 17:18 Acetaminophen 325 Mg Tab PO Q4H PRN Pain MILD(1-3)/Fever >100.5/MARIE Albuterol 2.5 mg 06/21/21 17:18 Albuterol 2.5 Mg/3 Ml Nebu IH Q4HRT PRN Shortness Of Breath Alprazolam 0.125 mg 06/21/21 17:18 Alprazolam 0.25 Mg Tab PO Q8H PRN Anxiety Ascorbic Acid 500 mg 06/21/21 22:00 06/22/21 11:10 Ascorbic Acid 500 Mg Tab PO 500 mg BID ZEUS Administration Cholecalciferol 1,000 unit 06/22/21 10:00 06/22/21 11:10 Cholecalciferol (Vit D3) 1000 Unit (25 Mcg) Tab PO 1,000 unit QDAY ZEUS Administration Heparin Sodium (Porcine) 5,000 unit 06/21/21 22:00 06/22/21 11:10 Heparin 5,000 Unit/1 Ml Vial SUB-Q 5,000 unit Q12HR ZEUS Administration Hydromorphone HCl 0.5 mg 06/21/21 17:18 Hydromorphone 1 Mg/1 Ml Inj IV Q12H PRN Pain , Severe (7-10) Ceftriaxone Sodium 2 gm in 100 mls @ 200 mls/hr 06/22/21 16:00 06/22/21 17:27 Rocephin/Ns 2 Gm/100 Ml IV 06/25/21 16:29 200 mls/hr Q24H ZEUS Administration Protocol Azithromycin 500 mg in 250 mls @ 250 mls/hr 06/22/21 18:00 06/22/21 17:34 Zithromax/Ns IV 06/25/21 18:59 250 mls/hr Q24H ZEUS Administration Protocol REMDESIVIR 100 mg/ Sodium 250 mls @ 500 mls/hr 06/23/21 21:00 Chloride IV 06/26/21 21:29 Q24HR@2100 ZEUS Methylprednisolone Sodium Succinate 40 mg 06/21/21 18:00 06/22/21 11:18 Methylprednisolone Sod Succinate 40 Mg/1 Ml Inj IV 40 mg Q8H ZEUS Administration Ondansetron HCl 4 mg 06/21/21 17:18 Ondansetron 4 Mg/2 Ml Inj IV Q8H PRN Nausea And Vomiting Oxycodone/Acetaminophen 1 tab 06/21/21 17:18 Oxycodone /Acetaminophen 5-325mg Tab PO Q12H PRN Pain, Moderate (4-6) Sodium Chloride 10 ml 06/21/21 22:00 06/22/21 11:11 Sodium Chloride 0.9% 10 Ml Flush Syringe IV 10 ml BID ZEUS Administration Sodium Chloride 10 ml 06/21/21 17:18 Sodium Chloride 0.9% 10 Ml Flush Syringe IV PRN PRN LINE FLUSH Sodium Chloride 50 ml 06/22/21 17:00 06/22/21 17:27 Sodium Chloride 0.9% 50 Ml Ivpb IV 06/26/21 21:01 50 ml Q24HR@2100 ZEUS Administration
[2021-06-22 21:28] LABS: Alanine Aminotransferase 23 units/L (7-56); Albumin 3.2 g/dL (3.9-5); BUN/Creatinine Ratio 38; Blood Urea Nitrogen 30 mg/dL (7-17); Calcium 8.4 mg/dL (8.4-10.2); Hemolysis Index 7
[2021-06-23] MEDS: methylPREDNISolone Sod Succinate 40 MG/1 ML INJ IV SCH ×3 (01:38→18:47)
[2021-06-23] MEDS: INSULIN LISPRO 100 UNIT/ML SUB-Q SCH ×4 (07:00→23:13)
[2021-06-23 07:12] LABS: Alanine Aminotransferase 23 units/L (7-56); Albumin 3.2 g/dL (3.9-5); BUN/Creatinine Ratio 40; Blood Urea Nitrogen 32 mg/dL (7-17); Hemolysis Index 16
[2021-06-23] MEDS: HEPARIN 5,000 UNIT/1 ML VIAL SUB-Q SCH ×2 (12:54→23:13)
[2021-06-23] MEDS: CHOLECALCIFEROL (VIT D3) 1000 UNIT (25 mcg) TAB PO SCH (12:55)
[2021-06-23] MEDS: ASCORBIC ACID 500 MG TAB PO SCH ×2 (12:55→23:13)
--- NOTE | 2021-06-23 15:40 | Progress Note ---
Assessment and Plan Cultures: SARS CoV2 PCR: Positive as outpatient and here 06/21/2021 blood culture: no growth A/P: 65-year-old female with hypertension, diabetes with: #Bilateral pneumonia: Secondary to COVID-19. Bilateral pneumonia on chest x- ray. Patient is fully vaccinated. Breakthrough infection. Markers not very elevated. #Acute hypoxic respiratory failure: Secondary to above. On nasal cannula. #Diabetes, hypertension: Comorbidities associated with worse Covid outcomes. #Leukopenia: Likely secondary to COVID-19 Recs: -continue steroids, on Solu-Medrol, may start weaning -Procalcitonin 0.05, antibiotics discontinued -IV remdesivir x 5 days total -prophylactic anticoagulation based on d-dimer per hospital protocol -trend ferritin, LDH, d-dimer, CRP every 2-3 days for risk stratification and to assess disease progression Angela Newell MD, FACP [facility] O: [phone] F: [phone] Subjective Date of service: 06/23/21 Interval history: No fever. On nasal cannula. Objective - Exam Narrative Exam: Physical Exam (reviewed in chart to minimize risk of transmission) Constitutional: deferred Head, Ears, Nose: deferred Eyes: deferred Neck: deferred Oral: deferred Cardiovascular: deferred Respiratory: deferred GI: deferred Musculoskeletal: deferred Skin: deferred Hem/Lymphatic: deferred Psych: deferred Neurological: deferred - Constitutional Vitals: Vital Signs Temp Pulse Resp BP Pulse Ox 98.3 F 74 18 124/71 89 06/23/21 04:15 06/23/21 04:15 06/23/21 04:15 06/23/21 04:15 06/23/21 10:00 Temperature -Last 24 Hours Temperature 98.3 F Temperature 98.7 F - Labs CBC & Chem 7: 06/22/21 07:52 06/23/21 06:08 Labs: Abnormal lab results 06/22/21 06/22/21 06/22/21 Range/Units 07:52 16:41 20:57 MCV 99 H (79-97) fl MCH 33 H (28-32) pg Lymph # (Auto) 0.6 L (1.2-5.4) K/mm3 Seg Neutrophils # 1.5 L (1.8-7.7) K/mm3 Seg Neutrophils # Man 1.4 L (1.8-7.7) K/mm3 Lymphocytes # (Manual) 0.7 L (1.2-5.4) K/mm3 Potassium (3.6-5.0) mmol/L Carbon Dioxide (22-30) mmol/L BUN 30 H (7-17) mg/dL Glucose 301 H (65-100) mg/dL POC Glucose 340 H (70-105) mg/dL Total Protein (6.3-8.2) g/dL Albumin 3.2 L (3.9-5) g/dL 06/22/21 06/23/21 06/23/21 Range/Units 22:39 05:40 06:08 MCV (79-97) fl MCH (28-32) pg Lymph # (Auto) (1.2-5.4) K/mm3 Seg Neutrophils # (1.8-7.7) K/mm3 Seg Neutrophils # Man (1.8-7.7) K/mm3 Lymphocytes # (Manual) (1.2-5.4) K/mm3 Potassium 5.1 H (3.6-5.0) mmol/L Carbon Dioxide 21 L (22-30) mmol/L BUN 32 H (7-17) mg/dL Glucose 320 H (65-100) mg/dL POC Glucose 289 H 258 H (70-105) mg/dL Total Protein 6.1 L (6.3-8.2) g/dL Albumin 3.2 L (3.9-5) g/dL 06/23/21 Range/Units 12:09 MCV (79-97) fl MCH (28-32) pg Lymph # (Auto) (1.2-5.4) K/mm3 Seg Neutrophils # (1.8-7.7) K/mm3 Seg Neutrophils # Man (1.8-7.7) K/mm3 Lymphocytes # (Manual) (1.2-5.4) K/mm3 Potassium (3.6-5.0) mmol/L Carbon Dioxide (22-30) mmol/L BUN (7-17) mg/dL Glucose (65-100) mg/dL POC Glucose 217 H (70-105) mg/dL Total Protein (6.3-8.2) g/dL Albumin (3.9-5) g/dL
[2021-06-23] MEDS: cefTRIAXone/NS 2 GM/100 ML 2 GM/100 ML BAG IV SCH (18:46)
[2021-06-23] MEDS: AZITHROMYCIN/NS 500 MG/250 ML 500 MG/250 ML BAG IV SCH (18:46)
[2021-06-23] MEDS: REMDESIVIR 100 MG in SODIUM CHLORIDE 0.9% 250ML 250 ML IV SCH (23:12)
[2021-06-23] MEDS: SODIUM CHLORIDE 0.9% 50 ML IVPB IV SCH (23:14)
--- NOTE | 2021-06-24 00:07 | Progress Note ---
Assessment and Plan Assessment and Plan - Patient Problems (1) Acute hypoxemic respiratory failure Current Visit: Yes Status: Acute Plan to address problem: Resolved On room air (2) Bilateral pneumonia Current Visit: Yes Status: Acute Plan to address problem: Prolactin level normal next We will discontinue IV antibiotics (3) Diabetes Current Visit: Yes Status: Acute Plan to address problem: Reasonable control (4) HTN (hypertension) Current Visit: Yes Status: Acute Qualifiers: Hypertension type: primary hypertension Qualified Code(s): I10 - Essential (primary) hypertension Plan to address problem: Reasonably well-controlled blood pressure (5) Suspected COVID-19 virus infection Current Visit: Yes Status: Acute Plan to address problem: Treated with Decadron and IV Solu-Medrol (6) DVT prophylaxis Current Visit: Yes Status: Acute Plan to address problem: SCD to bilateral lower extremities while in bed, prophylactic anticoagulation (7) Advance care planning Current Visit: Yes Status: Acute Plan to address problem: Disease education conducted, care plan discussed, diagnosis discussed, prognosis discussed, patient is full code, patient knowledges understanding and agreement with care plan, +30 minutes. Subjective Date of service: 06/23/21 Principal diagnosis: COVID pneumonia, acute respiratory failure with hypoxia Interval history: History of present illness: 65 YO Female with HTN, DM presents to ED for evaluation. Patient reports "I feel sick". Patient states that she has experienced shortness of breath of breath, subjective fever, chills, malaise, loss of sense of smell, loss of sense of taste, body aches over the past 3 days with persistent and worsening symptoms over the same timeframe. Patient knowledges known exposure to coronavirus while at work. Patient transported to [facility] for further care and evaluation of the aforementioned symptoms. The patient was seen and evaluated in the emergency department. All lab and imaging studies reviewed. The patient was found to have a pulse oximetry of 86% with exertion with history is consistent with acute hypoxemic respiratory failure. Chest x-ray revealed bilateral pneumonia. Patient admitted to medical floor and initiated on pneumonia protocol as well as coronavirus protocol. Patient knowledges fever but denies chills, chest pain, palpitation, skin rash, recent ill contacts. Patient states that she is fully vaccinated with the Pfizer vaccine. No prior admission for review. No medic ation listed at time of admission for reconciliation. Advanced care planning conducted in ED. 06/23/2021 On 4 L nasal cannula oxygen Otherwise doing well Objective - Constitutional General appearance: Present: mild distress, well-nourished - EENT Eyes: PERRL, EOM intact ENT: hearing intact, clear oral mucosa Ears: bilateral: normal - Neck Neck: supple, normal ROM - Respiratory Respiratory effort: normal Respiratory: bilateral: CTA - Breasts Breasts: normal - Cardiovascular Heart rate: 78 Rhythm: regular Heart Sounds: Present: S1 & S2. Absent: gallop, rub Extremities: pulses intact, No edema, normal color, Full ROM - Gastrointestinal General gastrointestinal: Present: soft, non-tender, non-distended, normal bowel sounds - Genitourinary Female genitourinary: normal - Integumentary Integumentary: clear, warm, dry - Musculoskeletal Musculoskeletal: 1, strength equal bilaterally - Neurologic Neurologic: moves all extremities - Psychiatric Psychiatric: memory intact, appropriate mood/affect, intact judgment & insight - Labs CBC & Chem 7: 06/22/21 07:52 06/25/21 05:43 Labs: Abnormal lab results 06/23/21 06/23/21 06/23/21 Range/Units 05:40 06:08 12:09 Potassium 5.1 H (3.6-5.0) mmol/L Carbon Dioxide 21 L (22-30) mmol/L BUN 32 H (7-17) mg/dL Glucose 320 H (65-100) mg/dL POC Glucose 258 H 217 H (70-105) mg/dL Total Protein 6.1 L (6.3-8.2) g/dL Albumin 3.2 L (3.9-5) g/dL 06/23/21 06/23/21 Range/Units 15:54 22:41 Potassium (3.6-5.0) mmol/L Carbon Dioxide (22-30) mmol/L BUN (7-17) mg/dL Glucose (65-100) mg/dL POC Glucose 262 H 350 H (70-105) mg/dL Total Protein (6.3-8.2) g/dL Albumin (3.9-5) g/dL HEART Score - HEART Score Troponin: Troponin T < 0.010 ng/mL (0.00-0.029) 06/21/21 16:33
[2021-06-24] MEDS: methylPREDNISolone Sod Succinate 40 MG/1 ML INJ IV SCH ×3 (04:43→17:50)
[2021-06-24 06:46] LABS: Alanine Aminotransferase 49 units/L (7-56); Albumin 3.3 g/dL (3.9-5); BUN/Creatinine Ratio 36; Blood Urea Nitrogen 29 mg/dL (7-17); Calcium 9.1 mg/dL (8.4-10.2); Hemolysis Index 7
--- NOTE | 2021-06-24 09:54 | Progress Note ---
Assessment and Plan Assessment and Plan - Patient Problems (1) Acute hypoxemic respiratory failure Current Visit: Yes Status: Acute Plan to address problem: Minimal oxygen of 2 L required We will try room air intermittently and check her oxygen saturations (2) Bilateral pneumonia Current Visit: Yes Status: Acute Plan to address problem: Pneumonia protocol: Chest x-ray, CBC, CMP, supplemental oxygen, pulse oximetry, nebulizer therapy, IV antibiotic therapy, blood culture. (3) Diabetes Current Visit: Yes Status: Acute Plan to address problem: Consistent carbohydrate diet, Accu-Chek, insulin protocol, hypoglycemia protocol. (4) HTN (hypertension) Current Visit: Yes Status: Acute Qualifiers: Hypertension type: primary hypertension Qualified Code(s): I10 - Essential (primary) hypertension Plan to address problem: Monitor blood pressure every shift, continue medical management (5) Suspected COVID-19 virus infection Current Visit: Yes Status: Acute Plan to address problem: Coronavirus protocol: IV antibiotic therapy, IV steroid therapy, supplemental oxygen, pulse oximetry, nebulizer therapy, prone positioning while in bed, vitamin C therapy, vitamin D therapy, zinc therapy, prophylactic anticoagulation. (6) DVT prophylaxis Current Visit: Yes Status: Acute Plan to address problem: SCD to bilateral lower extremities while in bed, prophylactic anticoagulation (7) Advance care planning Current Visit: Yes Status: Acute Plan to address problem: Disease education conducted, care plan discussed, diagnosis discussed, prognosis discussed, patient is full code, patient knowledges understanding and agreement with care plan, +30 minutes. Subjective Date of service: 06/24/21 Principal diagnosis: COVID pneumonia, acute respiratory failure with hypoxia Interval history: History of present illness: 65 YO Female with HTN, DM presents to ED for evaluation. Patient reports "I feel sick". Patient states that she has experienced shortness of breath of breath, subjective fever, chills, malaise, loss of sense of smell, loss of sense of taste, body aches over the past 3 days with persistent and worsening symptoms over the same timeframe. Patient knowledges known exposure to coronavirus while at work. Patient transported to [facility] for further care and evaluation of the aforementioned symptoms. The patient was seen and evaluated in the emergency department. All lab and imaging studies reviewed. The patient was found to have a pulse oximetry of 86% with exertion with history is consistent with acute hypoxemic respiratory failure. Chest x-ray revealed bilateral pneumonia. Patient admitted to medical floor and initiated on pneumonia protocol as well as coronavirus protocol. Patient knowledges fever but denies chills, chest pain, palpitation, skin rash, recent ill contacts. Patient states that she is fully vaccinated with the Pfizer vaccine. No prior admission for review. No medication listed at time of admission for reconciliation. Advanced care planning conducted in ED. 06/23/2021 On 4 L nasal cannula oxygen Otherwise doing well 06/24/21 On 2 L nasal cannula oxygen Otherwise doing well Weaning in progress Objective - Constitutional Vitals: Vital Signs - 12hr 06/23/21 06/24/21 23:00 03:22 Temperature 98.6 F Pulse Rate 58 L Pulse Rate [ 80 Right Brachial] Respiratory 18 18 Rate Blood Pressure 135/63 O2 Sat by Pulse 96 99 Oximetry General appearance: Present: no acute distress, well-nourished - EENT Eyes: PERRL, EOM intact ENT: hearing intact, clear oral mucosa Ears: bilateral: normal - Neck Neck: supple, normal ROM - Respiratory Respiratory effort: normal Respiratory: bilateral: CTA - Breasts Breasts: normal - Cardiovascular Heart rate: 78 Rhythm: regular Heart Sounds: Present: S1 & S2. Absent: gallop, rub Extremities: pulses intact, No edema, normal color, Full ROM - Gastrointestinal General gastrointestinal: Present: soft, non-tender, non-distended, normal bowel sounds - Genitourinary Female genitourinary: normal - Integumentary Integumentary: clear, warm, dry - Musculoskeletal Musculoskeletal: 1, strength equal bilaterally - Neurologic Neurologic: moves all extremities - Psychiatric Psychiatric: memory intact, appropriate mood/affect, intact judgment & insight - Labs CBC & Chem 7: 06/22/21 07:52 06/25/21 05:43 Labs: Abnormal lab results 06/23/21 06/23/21 06/23/21 Range/Units 12:09 15:54 22:41 D-Dimer (0-234) ng/mlDDU Chloride (98-107) mmol/L BUN (7-17) mg/dL Glucose (65-100) mg/dL POC Glucose 217 H 262 H 350 H (70-105) mg/dL AST (5-40) units/L Total Protein (6.3-8.2) g/dL Albumin (3.9-5) g/dL 06/24/21 06/24/21 06/24/21 Range/Units 05:31 05:31 05:40 D-Dimer 517.71 H (0-234) ng/mlDDU Chloride 107.6 H (98-107) mmol/L BUN 29 H (7-17) mg/dL Glucose 147 H (65-100) mg/dL POC Glucose 166 H (70-105) mg/dL AST 42 H (5-40) units/L Total Protein 6.1 L (6.3-8.2) g/dL Albumin 3.3 L (3.9-5) g/dL HEART Score - HEART Score Troponin: Troponin T < 0.010 ng/mL (0.00-0.029) 06/21/21 16:33
[2021-06-24] MEDS: INSULIN LISPRO 100 UNIT/ML SUB-Q SCH ×4 (09:56→23:24)
[2021-06-24] MEDS: HEPARIN 5,000 UNIT/1 ML VIAL SUB-Q SCH ×2 (10:56→23:23)
[2021-06-24] MEDS: CHOLECALCIFEROL (VIT D3) 1000 UNIT (25 mcg) TAB PO SCH (10:57)
[2021-06-24] MEDS: ASCORBIC ACID 500 MG TAB PO SCH ×2 (10:57→23:23)
--- NOTE | 2021-06-24 13:45 | Progress Note ---
Assessment and Plan Cultures: SARS CoV2 PCR: Positive as outpatient and here 06/21/2021 blood culture: no growth A/P: 65-year-old female with hypertension, diabetes with: #Bilateral pneumonia: Secondary to COVID-19. Bilateral pneumonia on chest x- ray. Patient is fully vaccinated. Breakthrough infection. Markers not very elevated. #Acute hypoxic respiratory failure: Secondary to above. On nasal cannula. #Diabetes, hypertension: Comorbidities associated with worse Covid outcomes. #Leukopenia: Likely secondary to COVID-19 Recs: -continue steroids -continue IV remdesivir, complete 5 days -prophylactic anticoagulation based on d-dimer per hospital protocol -trend ferritin, LDH, d-dimer, CRP every 2-3 days for risk stratification and to assess disease progression Angela Newell MD, FACP [facility] ([facility] O: [phone] F: [phone] Subjective Date of service: 06/24/21 Principal diagnosis: COVID pneumonia, acute respiratory failure with hypoxia Interval history: Afebrile. Remains on supplemental oxygen by nasal cannula. Hypoxic on ambulation as well. D-dimer 517, CRP 1.2 Objective - Exam Narrative Exam: Physical Exam (reviewed in chart to minimize risk of transmission) Constitutional: deferred Head, Ears, Nose: deferred Eyes: deferred Neck: deferred Oral: deferred Cardiovascular: deferred Respiratory: deferred GI: deferred Musculoskeletal: deferred Skin: deferred Hem/Lymphatic: deferred Psych: deferred Neurological: deferred - Constitutional Vitals: Vital Signs Temp Pulse Resp BP Pulse Ox 98.6 F 62 18 135/63 93 06/24/21 03:22 06/24/21 11:47 06/24/21 03:22 06/24/21 03:22 06/24/21 11:47 Temperature -Last 24 Hours Temperature 98.6 F Temperature 98.2 F - Labs CBC & Chem 7: 06/22/21 07:52 06/24/21 05:31 Labs: Abnormal lab results 06/23/21 06/23/21 06/24/21 Range/Units 15:54 22:41 05:31 D-Dimer (0-234) ng/mlDDU Chloride 107.6 H (98-107) mmol/L BUN 29 H (7-17) mg/dL Glucose 147 H (65-100) mg/dL POC Glucose 262 H 350 H (70-105) mg/dL AST 42 H (5-40) units/L Total Protein 6.1 L (6.3-8.2) g/dL Albumin 3.3 L (3.9-5) g/dL 06/24/21 06/24/21 06/24/21 Range/Units 05:31 05:40 11:46 D-Dimer 517.71 H (0-234) ng/mlDDU Chloride (98-107) mmol/L BUN (7-17) mg/dL Glucose (65-100) mg/dL POC Glucose 166 H 242 H (70-105) mg/dL AST (5-40) units/L Total Protein (6.3-8.2) g/dL Albumin (3.9-5) g/dL
[2021-06-24] MEDS: REMDESIVIR 100 MG in SODIUM CHLORIDE 0.9% 250ML 250 ML IV SCH (23:23)
[2021-06-24] MEDS: SODIUM CHLORIDE 0.9% 50 ML IVPB IV SCH (23:23)
[2021-06-25] MEDS: methylPREDNISolone Sod Succinate 40 MG/1 ML INJ IV SCH ×4 (03:00→11:06)
[2021-06-25 06:28] VITALS: BP 160/94
[2021-06-25 07:11] LABS: Alanine Aminotransferase 55 units/L (7-56); BUN/Creatinine Ratio 36; Blood Urea Nitrogen 29 mg/dL (7-17); Calcium 9.1 mg/dL (8.4-10.2); Hemolysis Index 2
[2021-06-25] MEDS: ASCORBIC ACID 500 MG TAB PO SCH (10:50)
[2021-06-25] MEDS: INSULIN LISPRO 100 UNIT/ML SUB-Q SCH ×2 (10:51→13:07)
[2021-06-25] MEDS: HEPARIN 5,000 UNIT/1 ML VIAL SUB-Q SCH (10:51)
[2021-06-25] MEDS: CHOLECALCIFEROL (VIT D3) 1000 UNIT (25 mcg) TAB PO SCH (10:51)
--- NOTE | 2021-06-25 12:57 | Discharge Summary ---
Providers - Providers Date of Admission: 06/21/21 17:20 Date of discharge: 06/25/21 Attending physician: SAMANTA BARROS 06/21/21 17:18 Consult to Physician [CONS] Routine Comment: Consulting Provider: MARGARET WHITLEY Physician Instructions: Reason For Exam: pui Primary care physician: GATO HALEY Hospitalization Condition: Stable Hospital course: Subjective Date of service: 06/24/21 Principal diagnosis: COVID pneumonia, acute respiratory failure with hypoxia Interval history: History of present illness: 65 YO Female with HTN, DM presents to ED for evaluation. Patient reports "I feel sick". Patient states that she has experienced shortness of breath of breath, subjective fever, chills, malaise, loss of sense of smell, loss of sense of taste, body aches over the past 3 days with persistent and worsening symptoms over the same timeframe. Patient knowledges known exposure to coronavirus while at work. Patient transported to [facility] for further care and evaluation of the aforementioned symptoms. The patient was seen and evaluated in the emergency department. All lab and imaging studies reviewed. The patient was found to have a pulse oximetry of 86% with exertion with history is consistent with acute hypoxemic respiratory failure. Chest x-ray revealed bilateral pneumonia. Patient admitted to medical floor and initiated on pneumonia protocol as well as coronavirus protocol. Patient knowledges fever but denies chills, chest pain, palpitation, skin rash, recent ill contacts. Patient states that she is fully vaccinated with the Pfizer vaccine. No prior admission for review. No medication listed at time of admission for reconciliation. Advanced care planning conducted in ED. 06/23/2021 On 4 L nasal cannula oxygen Otherwise doing well 06/24/21 On 2 L nasal cannula oxygen Otherwise doing well Weaning in progress 06/25/2021 On room air Assessment and Plan - Patient Problems (1) Acute hypoxemic respiratory failure Current Visit: Yes Status: Acute Plan to address problem: Minimal oxygen of 2 L required We will try room air intermittently and check her oxygen saturations (2) Bilateral pneumonia Current Visit: Yes Status: Acute Plan to address problem: Pneumonia protocol: Chest x-ray, CBC, CMP, supplemental oxygen, pulse oximetry, nebulizer therapy, IV antibiotic therapy, blood culture. (3) Diabetes Current Visit: Yes Status: Acute Plan to address problem: Consistent carbohydrate diet, Accu-Chek, insulin protocol, hypoglycemia protocol. (4) HTN (hypertension) Current Visit: Yes Status: Acute Qualifiers: Hypertension type: primary hypertension Qualified Code(s): I10 - Essential (primary) hypertension Plan to address problem: Monitor blood pressure every shift, continue medical management (5) Suspected COVID-19 virus infection Current Visit: Yes Status: Acute Plan to address problem: Coronavirus protocol: IV antibiotic therapy, IV steroid therapy, supplemental oxygen, pulse oximetry, nebulizer therapy, prone positioning while in bed, vitamin C therapy, vitamin D therapy, zinc therapy, prophylactic anti coagulation. (6) DVT prophylaxis Current Visit: Yes Status: Acute Plan to address problem: SCD to bilateral lower extremities while in bed, prophylactic anticoagulation (7) Advance care planning Current Visit: Yes Status: Acute Plan to address problem: Disease education conducted, care plan discussed, diagnosis discussed, prognosis discussed, patient is full code, patient knowledges understanding and agreement with care plan, +30 minutes. Disposition: 01 HOME / SELF CARE / HOMELESS Final Discharge Diagnosis (Prints w/discharge instructions): Acute hypoxemic respiratory failure. Bilateral pneumonia. . COVID-19 positive test (U07.1, COVID-19) with Acute Pneumonia (J12.89, Other viral pneumonia). (If respiratory failure or sepsis present, add as separate assessment). . Diabetes. Hypertension. Advance care planning Time spent for discharge: 32 minutes - Discharge Diagnoses (1) Acute hypoxemic respiratory failure Status: Acute (2) Diabetes Status: Acute (3) HTN (hypertension) Status: Acute Qualifiers: Hypertension type: primary hypertension Qualified Code(s): I10 - Essential (primary) hypertension (4) Suspected COVID-19 virus infection Status: Acute (5) Advance care planning Status: Acute Core Measure Documentation - Palliative Care Palliative Care/ Comfort Measures: Not Applicable - Core Measures Any of the following diagnoses?: none Exam - Constitutional Vitals: Temp Pulse Resp BP Pulse Ox 98.5 F 89 18 160/94 95 06/25/21 05:31 06/25/21 05:31 06/25/21 05:31 06/25/21 05:31 06/25/21 05:31 General appearance: Present: no acute distress, well-nourished - EENT Eyes: Present: PERRL ENT: hearing intact, clear oral mucosa - Neck Neck: Present: supple, normal ROM - Respiratory Respiratory effort: normal Respiratory: bilateral: CTA - Cardiovascular Heart rate: 78 Rhythm: regular Heart Sounds: Present: S1 & S2. Absent: rub, click - Extremities Extremities: pulses symmetrical, No edema Peripheral Pulses: within normal limits - Abdominal General gastrointestinal: Present: soft, non-tender, non-distended, normal bowel sounds Female genitourinary: Present: normal - Integumentary Integumentary: Present: clear, warm, dry - Musculoskeletal Musculoskeletal: gait normal, strength equal bilaterally - Psychiatric Psychiatric: appropriate mood/affect, intact judgment & insight - Neurologic Neurologic: CNII-XII intact, moves all extremities Plan Activity: no restrictions Diet: low fat, low salt Durable Medical Equipment Needed Upon Discharge: other Follow up with: GATO HALEY JR, MD [Primary Care Provider] - 3-5 Days
== END 2021-06-25 17:30 | disposition home or self-care (01) | DRG 177 ==
LOC: ED 13:58 → 3A 17:20
PROVIDERS: ADMIT Internal Medicine; ATTEND Internal Medicine
PROC: XW033E5 Introduction of Remdesivir Anti-infective into Peripheral Vein, Percutaneous Approach, New Technology Group 5 (ICD-10-PCS; principal; 2021-06-22)
DX: U07.1 COVID-19 (principal); J96.01 Acute respiratory failure with hypoxia; J12.82 Pneumonia due to coronavirus disease 2019; I10 Essential (primary) hypertension; D72.819 Decreased white blood cell count, unspecified; E11.8 Type 2 diabetes mellitus with unspecified complications; Z90.49 Acquired absence of other specified parts of digestive tract; Z82.49 Family history of ischemic heart disease and other diseases of the circulatory system; Z83.3 Family history of diabetes mellitus; Z79.899 Other long term (current) drug therapy
CPT/HCPCS: 36415; 71046; 80053; 82728; 82947; 82962; 83615; 83880; 84145; 84484; 85007; 85025; 85379; 86140; 87040; 93005; 94760; G0378; J0456; J0696; J1100; J1644; J1815; J2920; J7050; U0003